=== PATIENT | female | born 1975 | race African-American/Black ===

== ENCOUNTER 2024-09-07 17:45 | Emergency (ER) | payer MEDICARE, MEDICAID ==
[~2024-09-07] VITALS: Ht 162.6 cm; Wt 82.0 kg
[2024-09-07 18:05] VITALS: BP 187/106; PULSE 96; RESP 16; TEMP 98.6; O2SAT 99
[2024-09-07 21:19] LABS: CLARITY URINE CLEAR (CLEAR); COLOR URINE YELLOW (YELLOW); GLUCOSE URINE NEGATIVE (NEGATIVE); KETONES URINE NEGATIVE (NEGATIVE); LEUKOCYTE ESTERASE URINE NEGATIVE (NEGATIVE); NITRITE URINE NEGATIVE (NEGATIVE); OCCULT BLOOD URINE NEGATIVE (NEGATIVE); PH URINE 5.5 (4.5-8.0); PROTEIN URINE NEGATIVE (NEGATIVE); SPECIFIC GRAVITY URINE 1.023 (1.005-1.030); UROBILINOGEN URINE 1 E.U./dL (0.2-1.0)
[2024-09-07] MEDS: KETOROLAC 30MG/ML VIAL IM ONE (22:29)
[2024-09-07] MEDS: ONDANSETRON HCL 4MG TABLET PO ONE (22:29)
[2024-09-07] MEDS: TRAMADOL 50MG TABLET PO ONE (22:44)
[2024-09-07 23:49] LABS: BASOPHILS % 0.4 % (0.0-2.0); EOSINOPHILS % 1.6 % (0.0-5.0); HEMATOCRIT. 35.4 % (36.0-48.0); HEMOGLOBIN. 11.5 g/dL (12.0-16.0); LYMPHOCYTES % 10.5 % (20.0-50.0); MEAN CORPUSCULAR HEMOGLOBIN 26.1 pg (28.0-32.0); MEAN CORPUSCULAR HGB CONC 32.4 g/dL (31.0-37.0); MEAN CORPUSCULAR VOLUME 80.4 fL (81.0-99.0); MEAN PLATELET VOLUME 7.7 fl (7.4-10.4); MONOCYTES % 5.9 % (2.0-8.0); NEUTROPHILS % 81.6 % (40.0-76.0); PLATELET 348 x1000/uL (130-400); RED CELL DISTRIBUTION WIDTH 16.5 % (11.6-14.6); WHITE BLOOD COUNT 10.4 x1000/uL (4.5-11.0)
[2024-09-08] LABS: CHLORIDE 107 mEq/L (98-107); SODIUM 139 mEq/L (136-145)
[2024-09-08 00:01] LABS: CARBON DIOXIDE 24 mEq/L (21-32)
[2024-09-08 00:02] LABS: CALCIUM 9.2 mg/dL (8.7-10.4)
[2024-09-08 00:04] LABS: HCG SCREEN NEGATIVE
[2024-09-08 00:06] LABS: CREATININE 0.9 mg/dL (0.6-1.0); GLUCOSE 92 mg/dL (70-105)
[2024-09-08 00:07] LABS: TROPONIN I HIGH SENSITIVITY 6 ng/L (3.0-34); UREA NITROGEN BLOOD 25 mg/dL (9-23)
[2024-09-08 00:08] LABS: ALANINE AMINOTRANSFERASE 14 IU/L (10-49); ALBUMIN 4.3 g/dL (3.2-4.8); ASPARTATE AMINOTRANSFERASE 15 IU/L (<34)
[2024-09-08 00:09] LABS: BILIRUBIN DIRECT 0.1 mg/dL (<=3.0); BILIRUBIN TOTAL 0.4 mg/dL (0.1-1.0); PROTEIN TOTAL 7.4 g/dL (6.0-8.3)
[2024-09-08] MEDS ORDERED: IBUP-2028 MT (01:07)
== END 2024-09-08 01:30 | disposition home or self-care (01) ==
LOC: ER 17:45
DX: R10.84 Generalized abdominal pain (principal); R42 Dizziness and giddiness; Z98.890 Other specified postprocedural states
CPT/HCPCS: 99284; 80076; 80048; 81003; 84703; 83690; 85025; 84484; 36415; 93005; 74176; Q0162; J1885; 99283